=== PATIENT | female | born 1990 | race African-American/Black ===

== ENCOUNTER 2017-01-28 09:33 | Day surgery (SDC) | payer MEDICAID ==
[~2017-01-28 09:33] MED LIST: COLACE100 MG PO; DEPO-PROVERA; EPIPEN AUTO-INJE1 EA IM; IRON SUPPLEMEN325 MG PO; IRON1 TA1 PO; MACROBID 100 M100 MG PO; MOTRIN800 MG PO; PERCOCET 5/3251 TAB PO; PREDNISONE20 MG PO; PRENATAL VITAM1 EAC1 PO; PRENATAL1 EACH PO; Zofran
== END 2017-01-28 15:23 ==
LOC: WSU 09:33 → SHSB 09:37 → ORW 11:59 → PACU 12:55 → SHSB 13:50
PROC: 0UDB8ZZ Extraction of Endometrium, Via Natural or Artificial Opening Endoscopic (ICD-10-PCS; principal; 2017-01-28)
DX: N93.9 Abnormal uterine and vaginal bleeding, unspecified (principal); I10 Essential (primary) hypertension; E66.9 Obesity, unspecified; E07.9 Disorder of thyroid, unspecified; F32.9 Major depressive disorder, single episode, unspecified; Z79.899 Other long term (current) drug therapy; Z91.010 Allergy to peanuts; Z98.890 Other specified postprocedural states